=== PATIENT | male | born 1975 | race Caucasian/White ===

== ENCOUNTER 2023-03-27 09:39 | Outpatient (CLI) | payer OTHER ==
[~2023-03-27 09:39] MED LIST: Iopamidol 300 61% 100 ML VIAL FS ONE
== END 2023-03-27 09:40 | disposition home or self-care (01) ==
LOC: CSHCT 09:39
PROVIDERS: ATTEND Family Medicine
DX: R51.9 Headache, unspecified (principal)
CPT/HCPCS: 70460

== ENCOUNTER 2023-10-29 14:00 | Outpatient (CLI) | payer OTHER | END 2023-10-29 14:01 | disposition home or self-care (01) | LOC: CSHRAD 14:00 | PROVIDERS: ATTEND Chiropractor | DX: S02.609A Fracture of mandible, unspecified, initial encounter for closed fracture (principal); S03.03XA Dislocation of jaw, bilateral, initial encounter | CPT/HCPCS: 70330 ==